=== PATIENT | male | born 2000 | race Caucasian/White ===

== ENCOUNTER 2020-07-12 09:50 | Emergency (ER) | payer BC ==
[~2020-07-12] VITALS: Ht 172.7 cm; Wt 136.4 kg
[2020-07-12 09:57] VITALS: BP 131/95
[2020-07-12] MEDS ORDERED: acetaminophen 325mg tablet PO ONE (10:20)
[2020-07-12] MEDS ORDERED: ketorolac trometh inj. 60 MG/2 ML VIAL IM ONE (10:20)
[2020-07-12] MEDS ORDERED: IBUP-1984 PO (10:22)
[2020-07-12] MEDS ORDERED: LIDO30CR23 TOP (10:22)
[2020-07-12] MEDS ORDERED: ACET-2615 PO (10:22)
== END 2020-07-12 10:31 | disposition home or self-care (01) ==
LOC: ER 09:50
DX: R23.4 Changes in skin texture (principal); M54.9 Dorsalgia, unspecified; Z79.899 Other long term (current) drug therapy
CPT/HCPCS: 96372; 99283; J1885

== ENCOUNTER 2021-08-13 18:48 | Emergency (ER) | payer BC ==
[~2021-08-13] VITALS: Ht 172.7 cm; Wt 134.1 kg
[~2021-08-13 18:48] MED LIST: LIDO30CR TOP
[2021-08-13 19:14] VITALS: BP 140/73
[2021-08-13] MEDS ORDERED: acetaminophen 325mg tablet PO ONE (19:25)
--- NOTE | 2021-08-13 19:30 | NUR ---
Pt.'s father's phone #[phone]
[2021-08-13 20:00] LABS: BASOPHILS % (AUTO) 0.3 % (0-1); EOSINOPHILS # (AUTO) 0.1 X10'3 (0-0.9); EOSINOPHILS % (AUTO) 0.6 % (0-6); HEMATOCRIT 49.3 % (42.0-52.0); HEMOGLOBIN 16.8 g/dl (14.0-17.9); LYMPHOCYTES # (AUTO) 1.4 X10'3 (1.1-4.8); LYMPHOCYTES % (AUTO) 10.4 % (21-51); MEAN CORPUSCULAR HEMOGLOBIN 29.4 PG (27.0-31.0); MEAN CORPUSCULAR HGB CONC 34.1 g/dL (33.0-36.5); MEAN CORPUSCULAR VOLUME 86.3 FL (78-98); MEAN PLATELET VOLUME 6.7 FL (7.4-10.4); MONOCYTES % (AUTO) 7.2 % (2-12); NEUTROPHILS # (AUTO) 11.2 X10'3 (1.8-7.7); NEUTROPHILS % (AUTO) 81.5 % (42-75); PLATELET COUNT 368 X10'3 (140-440); RED BLOOD COUNT 5.72 X10'6 (4.70-6.10); RED CELL DISTRIBUTION WIDTH 13.3 % (11.5-14.5); WHITE BLOOD COUNT 13.7 X10'3 (4.5-11.0)
[2021-08-13] MEDS ORDERED: normal saline 1000ML IV soln IV ONE (20:15)
[2021-08-13 20:27] LABS: ALANINE AMINOTRANSFERASE 57 U/L (12-78); ALBUMIN 3.8 G/DL (3.4-5.0); ALBUMIN/GLOBULIN RATIO 0.8 (1.1-1.5); ALKALINE PHOSPHATASE 74 IU/L (46-116); ANION GAP 12 (8-16); ASPARTATE AMINO TRANSFERASE 22 U/L (10-37); BILIRUBIN,TOTAL 0.5 MG/DL (0.1-1.0); BLOOD UREA NITROGEN 15 MG/DL (7-18); BUN/CREATININE RATIO 15.3 (5.4-32.0); CALCIUM 9.2 MG/DL (8.5-10.1); CHLORIDE 103 MMOL/L (99-107); CREATININE 0.98 MG/DL (0.60-1.10); GLUCOSE 166 MG/DL (70-104); SODIUM 140 MMOL/L (135-145); TOTAL CARBON DIOXIDE 25.4 MMOL/L (24-32); TOTAL PROTEIN 8.3 G/DL (6.4-8.2); eGFR > 90 ML/MIN
[2021-08-13 23:18] LABS: D-DIMER 0.36 MG/L FEU (0-0.50)
== END 2021-08-14 00:11 | disposition home or self-care (01) ==
LOC: ER 19:29
DX: B34.9 Viral infection, unspecified (principal); Z20.822 Contact with and (suspected) exposure to COVID-19; R50.9 Fever, unspecified; Z72.89 Other problems related to lifestyle
CPT/HCPCS: 36415; 71045; 80053; 83605; 84145; 85025; 85379; 87040; 87635; 96360; 99284; C9803; J7030

== ENCOUNTER 2023-09-22 17:12 | Emergency (ER) | payer BC, OTHER ==
[~2023-09-22] VITALS: Ht 172.7 cm; Wt 142.2 kg
[2023-09-22 17:50] VITALS: BP 125/66; PULSE 118; RESP 20; TEMP 100.3; O2SAT 96
[2023-09-22] MEDS ORDERED: CEFD300C3 PO (20:18)
== END 2023-09-22 20:24 | disposition home or self-care (01) ==
LOC: ER 17:13
DX: J20.9 Acute bronchitis, unspecified (principal); R05.3 Chronic cough; Z79.899 Other long term (current) drug therapy
CPT/HCPCS: 71046; 99283

== ENCOUNTER 2024-08-01 11:50 | Emergency (ER) | payer OTHER ==
[~2024-08-01] VITALS: Ht 172.7 cm; Wt 131.8 kg
[~2024-08-01 11:50] MED LIST changes: +CEFD300C3 PO
[2024-08-01 11:59] VITALS: TEMP 97.3
[2024-08-01] MEDS ORDERED: DOXY-1 PO (13:59)
[2024-08-01] MEDS ORDERED: HYDR-3965 PO (13:59)
[2024-08-01] MEDS: CefTRIAXone 1000mg IM Kit (w/lidocaine diluent) IM ONE (14:12)
[2024-08-01] MEDS: ketorolac trometh 15mg/ml vial 15 MG/ML ML IM ONE (14:12)
[2024-08-01 14:17] VITALS: BP 119/76; PULSE 94; RESP 16; O2SAT 97
== END 2024-08-01 14:21 | disposition home or self-care (01) ==
LOC: ER 11:51
DX: N45.1 Epididymitis (principal); Z79.899 Other long term (current) drug therapy
CPT/HCPCS: 76870; 93976; 96372; 99285; J0696; J1885

== ENCOUNTER 2025-03-17 09:28 | Emergency (ER) | payer BC, OTHER ==
[~2025-03-17] VITALS: Ht 172.7 cm; Wt 132.8 kg
[2025-03-17 10:14] LABS: ALBUMIN 3.5 G/DL (3.4-5.0); ANION GAP 8 (8-16); BASOPHILS % (AUTO) 0.1 % (0-1); BLOOD UREA NITROGEN 9 MG/DL (7-18); CHLORIDE 102 MMOL/L (99-107); EOSINOPHILS % (AUTO) 0.4 % (0-6); GLUCOSE 120 MG/DL (70-104); HEMATOCRIT 46.9 % (42.0-52.0); HEMOGLOBIN 15.8 g/dl (14.0-17.9); LYMPHOCYTES % (AUTO) 20.9 % (21-51); MEAN CORPUSCULAR HGB CONC 33.8 g/dL (33.0-36.5); MEAN CORPUSCULAR VOLUME 85.8 FL (78-98); MEAN PLATELET VOLUME 6.6 FL (7.4-10.4); MONOCYTES # (AUTO) 0.9 X10'3 (0-0.9); MONOCYTES % (AUTO) 8.9 % (2-12); NEUTROPHILS # (AUTO) 6.7 X10'3 (1.8-7.7); NEUTROPHILS % (AUTO) 69.7 % (42-75); PLATELET COUNT 371 X10'3 (140-440); RED BLOOD COUNT 5.46 X10'6 (4.70-6.10); RED CELL DISTRIBUTION WIDTH 13.6 % (11.5-14.5); SODIUM 139 MMOL/L (135-145); TOTAL CARBON DIOXIDE 29.5 MMOL/L (24-32); WHITE BLOOD COUNT 9.6 X10'3 (4.5-11.0); eCRCL 121 ML/MIN; eGFR > 90 ML/MIN
[2025-03-17 10:17] LABS: APTT 28 SECONDS (22-32); INR 1.1 INR; PROTHROMBIN TIME 11.6 SECONDS (9.0-12.0)
[2025-03-17 10:29] VITALS: TEMP 98.4
[2025-03-17] MEDS: ondansetron 4mg rapidly disintigrating tab PO ONE (11:06)
[2025-03-17] MEDS: morphine 4 MG/ML inj SYRINge IM ONE (11:08)
[2025-03-17 11:15] VITALS: BP 163/109; PULSE 65; RESP 16; O2SAT 99
== END 2025-03-17 11:12 | disposition home or self-care (01) ==
LOC: ER 09:28
DX: J01.00 Acute maxillary sinusitis, unspecified (principal); R51.9 Headache, unspecified; K08.89 Other specified disorders of teeth and supporting structures; Z79.899 Other long term (current) drug therapy
CPT/HCPCS: 36415; 70450; 71045; 80048; 82948; 85025; 85610; 85730; 93005; 96372; 99285; J2270